=== PATIENT | female | born 1960 | race African-American/Black ===

== ENCOUNTER 2022-06-14 11:35 | Inpatient (IN) | payer BC, OTHER ==
[2022-06-14] MEDS ORDERED: ALBUTEROL SO4 2.5/IPRATROPIUM 0.5 INH SOL 3 ML VIAL.NEB. NEB ONE (12:30)
[2022-06-14] MEDS: ALBUTEROL SO4 2.5/IPRATROPIUM 0.5 INH SOL 3 ML VIAL.NEB. NEB SCH ×3 (12:33→13:01)
[2022-06-14] MEDS ORDERED: DEXAMETHASONE 4 MG TABLET (FP) PO ONE (12:40)
[2022-06-14] MEDS ORDERED: DEXAMETHASONE SOD PHOSPHATE 10 MG/1 ML VIAL ONE (12:47)
[2022-06-14] MEDS ORDERED: DEXAMETHASONE 4 MG TABLET (FP) ONE (12:48)
[2022-06-14] MEDS ORDERED: ALBUTEROL SO4 0.083% IH SOL 2.5 MG/3 ML VIAL.NEB. NEB ONE ×2 (13:50→18:23)
[2022-06-14] MEDS ORDERED: MAGNESIUM 1GM/D5W - 1 GM/100 ML IVPB IVPB ONE (13:50)
[2022-06-14] MEDS: ALBUTEROL SO4 0.083% IH SOL 2.5 MG/3 ML VIAL.NEB. NEB SCH ×8 (13:56→18:00)
[2022-06-14 14:38] LABS: VENOUS BASE EXCESS 3.8 mmol/L (-2-2); VENOUS O2 SATURATION 38.9 % (70-80); VENOUS PCO2 48.3 mmHg (38-52); VENOUS PH 7.403 (7.310-7.410)
[2022-06-14 15:02] LABS: BASO % 0.6 % (0-2.0); EOS % 1.5 % (0-4.5); HEMATOCRIT 38.1 % (32.4-45.2); HEMOGLOBIN 12.6 GM/dL (10.7-15.3); LYMPH % 20.2 % (8-40); MCH 28.3 pg (25.7-33.7); MCHC 33.1 g/dl (32.0-36.0); MEAN CELL VOLUME 85.3 fl (80-96); MONO % 9.7 % (3.8-10.2); PLATELET COUNT 195 10^3/uL (134-434); RBC 4.46 M/mm3 (3.60-5.2); RDW 14.5 % (11.6-15.6); WHITE BLOOD COUNT 5.8 K/mm3 (4.0-10.0)
[2022-06-14] MEDS ORDERED: OSELTAMIVIR PHOSPHATE 75 MG CAPSULE PO ONE (15:19)
[2022-06-14 15:20] LABS: BLOOD UREA NITROGEN 9.2 mg/dL (7-18)
[2022-06-14 15:21] LABS: ALBUMIN 3.4 g/dl (3.4-5.0); MAGNESIUM 1.8 mg/dL (1.8-2.4)
[2022-06-14 15:24] LABS: CREATININE 0.9 mg/dL (0.55-1.3)
[2022-06-14 15:26] LABS: BILIRUBIN,TOTAL 0.6 mg/dL (0.2-1); TOT PROT 7.5 g/dl (6.4-8.2)
[2022-06-14] MEDS ORDERED: ALBUTEROL SO4 0.083% IH SOL 2.5 MG/3 ML VIAL.NEB. NEB PRN (17:27)
[2022-06-14] MEDS ORDERED: methylPREDNISolone NA SUCC 40 MG/1 ML VIAL IVPB SCH (17:30)
[2022-06-14 18:18] LABS: N-TERMINAL BNP 1755.2 pg/ml (5-125)
[2022-06-14] MEDS ORDERED: methylPREDNISolone NA SUCC 40 MG/1 ML VIAL ONE (18:23)
[2022-06-14] MEDS: methylPREDNISolone NA SUCC 40 MG/1 ML VIAL IVPB SCH (18:33)
[2022-06-14] MEDS: SODIUM CHLORIDE 1,000 ML IV SCH (18:33)
[2022-06-14] MEDS ORDERED: INSULIN (NOVOLOG) ASPART 100 UNITS/ML 10ML VIAL SQ ONE (19:08)
[2022-06-14] MEDS ORDERED: INSULIN (LEVEMIR) 100 UNITS/ML UNITS SQ SCH (22:00)
[2022-06-14] MEDS: INSULIN (LEVEMIR) 100 UNITS/ML UNITS SQ SCH (23:43)
[2022-06-15] MEDS: INSULIN SLIDING SCALE (NOVOLOG) 1 VIAL SQ SCH ×4 (00:37→16:37)
[2022-06-15 00:53] VITALS: BMI 31.1
[2022-06-15] MEDS: methylPREDNISolone NA SUCC 40 MG/1 ML VIAL IVPB SCH ×3 (01:43→16:32)
[2022-06-15] MEDS: SODIUM CHLORIDE 1,000 ML IV SCH (01:43)
[2022-06-15] MEDS: OSELTAMIVIR PHOSPHATE 75 MG CAPSULE PO SCH ×2 (09:20→22:31)
[2022-06-15] MEDS: LABETALOL HCL 100 MG TABLET (FP) PO SCH ×2 (09:20→22:31)
[2022-06-15] MEDS: glipiZIDE 5 MG TABLET (FP) PO SCH ×2 (09:20→16:32)
[2022-06-15] MEDS: VALSARTAN 160 MG TABLET PO SCH (09:20)
[2022-06-15] MEDS: ENOXAPARIN NA (PORCINE) 40 MG/0.4 ML DISP.SYRIN SQ SCH (09:20)
[2022-06-15] MEDS: guaiFENesin 200 MG/10 ML 10 ML UNIT-DOSE CUPS PO PRN ×2 (09:26→22:31)
[2022-06-15 09:27] LABS: BASO % 0.2 % (0-2.0); HEMATOCRIT 37.2 % (32.4-45.2); LYMPH % 10.5 % (8-40); MCH 27.8 pg (25.7-33.7); MCHC 32.4 g/dl (32.0-36.0); MEAN CELL VOLUME 85.9 fl (80-96); MEAN PLT VOLUME 10.2 fl (7.5-11.1); MONO % 2.4 % (3.8-10.2); NEUT % 86.9 % (42.8-82.8); PLATELET COUNT 220 10^3/uL (134-434); RBC 4.32 M/mm3 (3.60-5.2); RDW 14.8 % (11.6-15.6); WHITE BLOOD COUNT 5.5 K/mm3 (4.0-10.0)
[2022-06-15] MEDS: ALBUTEROL SO4 2.5/IPRATROPIUM 0.5 INH SOL 3 ML VIAL.NEB. NEB PRN ×2 (09:43→16:46)
[2022-06-15 09:53] LABS: ALBUMIN 3.3 g/dl (3.4-5.0); BLOOD UREA NITROGEN 22.3 mg/dL (7-18)
[2022-06-15 09:55] LABS: CREATININE 1.3 mg/dL (0.55-1.3)
[2022-06-15 09:57] LABS: BILIRUBIN,TOTAL 0.5 mg/dL (0.2-1); TOT PROT 7.4 g/dl (6.4-8.2)
[2022-06-15] MEDS: hydrALAZINE HCL 50 MG TABLET (FP) PO SCH ×2 (13:57→22:30)
[2022-06-15] MEDS ORDERED: ALBUTEROL SO4 HFA INHALER IH PRN (14:10)
[2022-06-15] MEDS ORDERED: amLODIPine BESYLATE 5 MG TABLET (FP) PO ONE (14:11)
[2022-06-15] MEDS: INSULIN (LEVEMIR) 100 UNITS/ML UNITS SQ SCH (22:30)
[2022-06-16] MEDS: methylPREDNISolone NA SUCC 40 MG/1 ML VIAL IVPB SCH ×5 (00:45→23:06)
[2022-06-16] MEDS: hydrALAZINE HCL 50 MG TABLET (FP) PO SCH ×3 (05:30→21:38)
[2022-06-16] MEDS: INSULIN SLIDING SCALE (NOVOLOG) 1 VIAL SQ SCH (06:04)
[2022-06-16] MEDS: glipiZIDE 5 MG TABLET (FP) PO SCH (06:25)
[2022-06-16] MEDS: VALSARTAN 160 MG TABLET PO SCH (09:43)
[2022-06-16] MEDS: ENOXAPARIN NA (PORCINE) 40 MG/0.4 ML DISP.SYRIN SQ SCH (09:43)
[2022-06-16] MEDS: OSELTAMIVIR PHOSPHATE 75 MG CAPSULE PO SCH ×2 (09:43→21:37)
[2022-06-16] MEDS: LABETALOL HCL 100 MG TABLET (FP) PO SCH ×2 (09:43→21:37)
[2022-06-16] MEDS: guaiFENesin 200 MG/10 ML 10 ML UNIT-DOSE CUPS PO PRN ×2 (09:44→14:45)
[2022-06-16] MEDS ORDERED: ALBUTEROL SO4 HFA INHALER IH PRN (10:10)
[2022-06-16] MEDS ORDERED: ALBUTEROL SO4 2.5/IPRATROPIUM 0.5 INH SOL 3 ML VIAL.NEB. NEB PRN (10:10)
[2022-06-16] MEDS: ALBUTEROL SO4 2.5/IPRATROPIUM 0.5 INH SOL 3 ML VIAL.NEB. NEB SCH ×3 (11:28→21:36)
[2022-06-16] MEDS: INSULIN (NOVOLOG) ASPART 100 UNITS/ML 10ML VIAL SQ SCH ×2 (11:42→16:55)
[2022-06-16] MEDS ORDERED: methylPREDNISolone NA SUCC 40 MG/1 ML VIAL IVPB SCH (16:23)
[2022-06-16] MEDS: glipiZIDE 10 MG TABLET (FP) PO SCH (16:54)
[2022-06-16] MEDS: INSULIN (LEVEMIR) 100 UNITS/ML UNITS SQ SCH (21:40)
[2022-06-16] MEDS: CLOTRIMAZOLE 1% VAGINAL CREAM WITH APPLICATOR 45 GM TUBE VG SCH (21:41)
[2022-06-17] MEDS: ALBUTEROL SO4 2.5/IPRATROPIUM 0.5 INH SOL 3 ML VIAL.NEB. NEB SCH ×6 (02:26→20:05)
[2022-06-17] MEDS: methylPREDNISolone NA SUCC 40 MG/1 ML VIAL IVPB SCH ×4 (06:11→22:19)
[2022-06-17] MEDS: hydrALAZINE HCL 50 MG TABLET (FP) PO SCH ×3 (06:11→22:18)
[2022-06-17] MEDS: glipiZIDE 10 MG TABLET (FP) PO SCH ×2 (06:12→16:51)
[2022-06-17] MEDS: INSULIN (NOVOLOG) ASPART 100 UNITS/ML 10ML VIAL SQ SCH ×3 (06:15→16:51)
[2022-06-17] MEDS: ENOXAPARIN NA (PORCINE) 40 MG/0.4 ML DISP.SYRIN SQ SCH (10:27)
[2022-06-17] MEDS: LABETALOL HCL 100 MG TABLET (FP) PO SCH ×2 (10:27→22:18)
[2022-06-17] MEDS: OSELTAMIVIR PHOSPHATE 75 MG CAPSULE PO SCH ×2 (10:27→22:18)
[2022-06-17] MEDS: VALSARTAN 160 MG TABLET PO SCH (10:28)
[2022-06-17] MEDS: guaiFENesin 200 MG/10 ML 10 ML UNIT-DOSE CUPS PO PRN (10:29)
[2022-06-17] MEDS: CLOTRIMAZOLE 1% VAGINAL CREAM WITH APPLICATOR 45 GM TUBE VG SCH (22:19)
[2022-06-17] MEDS: INSULIN (LEVEMIR) 100 UNITS/ML UNITS SQ SCH (22:21)
[2022-06-18] MEDS: ALBUTEROL SO4 2.5/IPRATROPIUM 0.5 INH SOL 3 ML VIAL.NEB. NEB SCH ×6 (01:31→20:08)
[2022-06-18] MEDS: methylPREDNISolone NA SUCC 40 MG/1 ML VIAL IVPB SCH ×3 (06:11→21:59)
[2022-06-18] MEDS: hydrALAZINE HCL 50 MG TABLET (FP) PO SCH ×3 (06:11→21:59)
[2022-06-18] MEDS: glipiZIDE 10 MG TABLET (FP) PO SCH ×2 (06:11→17:20)
[2022-06-18] MEDS: INSULIN (NOVOLOG) ASPART 100 UNITS/ML 10ML VIAL SQ SCH ×3 (06:14→17:25)
[2022-06-18] MEDS: VALSARTAN 160 MG TABLET PO SCH (09:43)
[2022-06-18] MEDS: ENOXAPARIN NA (PORCINE) 40 MG/0.4 ML DISP.SYRIN SQ SCH (09:43)
[2022-06-18] MEDS: LABETALOL HCL 200 MG TABLET (FP) PO SCH ×2 (09:43→21:59)
[2022-06-18] MEDS: OSELTAMIVIR PHOSPHATE 75 MG CAPSULE PO SCH (09:43)
[2022-06-18] MEDS: CHLORTHALIDONE 25 MG TABLET PO SCH (09:43)
[2022-06-18] MEDS: NYSTATIN 500,000 UNITS/5 ML SUSPENSION PO SCH ×2 (13:18→17:20)
[2022-06-18] MEDS: INSULIN (LEVEMIR) 100 UNITS/ML UNITS SQ SCH (21:59)
[2022-06-18] MEDS: CLOTRIMAZOLE 1% VAGINAL CREAM WITH APPLICATOR 45 GM TUBE VG SCH (21:59)
[2022-06-18] MEDS ORDERED: SODIUM CHLORIDE 250 ML IV STA (23:34)
[2022-06-19] MEDS: ALBUTEROL SO4 2.5/IPRATROPIUM 0.5 INH SOL 3 ML VIAL.NEB. NEB SCH ×6 (00:36→20:05)
[2022-06-19] MEDS: NYSTATIN 500,000 UNITS/5 ML SUSPENSION PO SCH ×4 (01:14→17:15)
[2022-06-19] MEDS ORDERED: ACETAMINOPHEN 325 MG TABLET (FP) PO ONE (05:02)
[2022-06-19] MEDS: INSULIN (NOVOLOG) ASPART 100 UNITS/ML 10ML VIAL SQ SCH ×3 (06:19→16:45)
[2022-06-19] MEDS: glipiZIDE 10 MG TABLET (FP) PO SCH ×2 (06:20→16:42)
[2022-06-19] MEDS: hydrALAZINE HCL 50 MG TABLET (FP) PO SCH ×3 (06:21→21:15)
[2022-06-19] MEDS: VALSARTAN 160 MG TABLET PO SCH (09:27)
[2022-06-19] MEDS: ENOXAPARIN NA (PORCINE) 40 MG/0.4 ML DISP.SYRIN SQ SCH (09:28)
[2022-06-19] MEDS: CHLORTHALIDONE 25 MG TABLET PO SCH (09:28)
[2022-06-19] MEDS: LABETALOL HCL 200 MG TABLET (FP) PO SCH ×2 (09:28→21:15)
[2022-06-19] MEDS: methylPREDNISolone NA SUCC 40 MG/1 ML VIAL IVPB SCH ×2 (09:42→21:15)
[2022-06-19 11:33] LABS: HEMOGLOBIN 13.3 GM/dL (10.7-15.3); MCH 28.2 pg (25.7-33.7); MCHC 33.3 g/dl (32.0-36.0); MEAN CELL VOLUME 84.7 fl (80-96); MEAN PLT VOLUME 10.1 fl (7.5-11.1); PLATELET COUNT 187 10^3/uL (134-434); RBC 4.73 M/mm3 (3.60-5.2); RDW 14.7 % (11.6-15.6); WHITE BLOOD COUNT 8.8 K/mm3 (4.0-10.0)
[2022-06-19 11:57] LABS: CALCIUM 8.8 mg/dL (8.5-10.1)
[2022-06-19 11:58] LABS: ALBUMIN 2.8 g/dl (3.4-5.0); BLOOD UREA NITROGEN 24.5 mg/dL (7-18)
[2022-06-19 12:03] LABS: BILIRUBIN,TOTAL 0.9 mg/dL (0.2-1); TOT PROT 6.8 g/dl (6.4-8.2)
[2022-06-19 13:28] LABS: EPI CELLS 10 /uL (0-25.1); HYALINE CASTS 0 /uL (0-3.1); URINE APPEARANCE CLEAR; URINE BACTERIA 321 /uL (0-1359); URINE BILIRUBIN NEGATIVE (NEGATIVE); URINE COLOR YELLOW; URINE GLUCOSE (UA) TRACE (NEGATIVE); URINE KETONE NEGATIVE (NEGATIVE); URINE LEUK ESTERASE NEGATIVE (NEGATIVE); URINE NITRITE NEGATIVE (NEGATIVE); URINE PROTEIN 1+ (NEGATIVE); URINE RBC 6 /uL (0-23.9); URINE WBC 10 /uL (0-25.8)
[2022-06-19] MEDS: INSULIN (LEVEMIR) 100 UNITS/ML UNITS SQ SCH (21:15)
[2022-06-19] MEDS: CLOTRIMAZOLE 1% VAGINAL CREAM WITH APPLICATOR 45 GM TUBE VG SCH (21:18)
[2022-06-20] MEDS: NYSTATIN 500,000 UNITS/5 ML SUSPENSION PO SCH ×4 (00:15→17:46)
[2022-06-20] MEDS: ALBUTEROL SO4 2.5/IPRATROPIUM 0.5 INH SOL 3 ML VIAL.NEB. NEB SCH ×6 (04:00→20:24)
[2022-06-20] MEDS: hydrALAZINE HCL 50 MG TABLET (FP) PO SCH ×3 (06:24→22:25)
[2022-06-20] MEDS: INSULIN (NOVOLOG) ASPART 100 UNITS/ML 10ML VIAL SQ SCH ×3 (06:24→17:46)
[2022-06-20] MEDS: glipiZIDE 10 MG TABLET (FP) PO SCH ×2 (06:25→17:46)
[2022-06-20] MEDS ORDERED: ACETAMINOPHEN 325 MG TABLET (FP) PO ONE (06:36)
[2022-06-20] MEDS ORDERED: guaiFENesin/D-M SUGAR-FREE/ACLHOL-FREE 5 ML UNIT DOSE PO PRN (08:19)
[2022-06-20] MEDS ORDERED: PIPERACILLIN/TAZOB 3.375 GM 3.375 GM in DEXTROSE 5%-WATER - 50 ML IVPB SCH (10:00)
[2022-06-20] MEDS: methylPREDNISolone NA SUCC 40 MG/1 ML VIAL IVPB SCH ×2 (10:43→22:25)
[2022-06-20] MEDS: ENOXAPARIN NA (PORCINE) 40 MG/0.4 ML DISP.SYRIN SQ SCH (10:44)
[2022-06-20] MEDS: VALSARTAN 160 MG TABLET PO SCH (10:44)
[2022-06-20] MEDS: CHLORTHALIDONE 25 MG TABLET PO SCH (10:45)
[2022-06-20] MEDS: LABETALOL HCL 200 MG TABLET (FP) PO SCH ×2 (10:45→22:25)
[2022-06-20] MEDS: VANCOMYCIN/WATER FOR INJ (PEG) 1,000 MG/200 ML BAG IVPB SCH (15:56)
[2022-06-20] MEDS: PIPERACILLIN/TAZOB 4.5 GM 4.5 GM in DEXTROSE 5%-WATER 100 ML IVPB SCH (17:46)
[2022-06-20] MEDS: INSULIN (LEVEMIR) 100 UNITS/ML UNITS SQ SCH (22:26)
[2022-06-20] MEDS: CLOTRIMAZOLE 1% VAGINAL CREAM WITH APPLICATOR 45 GM TUBE VG SCH (22:26)
[2022-06-21] MEDS: ALBUTEROL SO4 2.5/IPRATROPIUM 0.5 INH SOL 3 ML VIAL.NEB. NEB SCH ×3 (00:10→09:37)
[2022-06-21] MEDS: NYSTATIN 500,000 UNITS/5 ML SUSPENSION PO SCH ×5 (01:43→23:30)
[2022-06-21] MEDS: PIPERACILLIN/TAZOB 4.5 GM 4.5 GM in DEXTROSE 5%-WATER 100 ML IVPB SCH ×3 (01:44→17:01)
[2022-06-21] MEDS: VANCOMYCIN/WATER FOR INJ (PEG) 1,000 MG/200 ML BAG IVPB SCH ×2 (03:15→15:11)
[2022-06-21] MEDS: hydrALAZINE HCL 50 MG TABLET (FP) PO SCH ×4 (06:13→22:03)
[2022-06-21] MEDS: glipiZIDE 10 MG TABLET (FP) PO SCH ×2 (06:13→16:34)
[2022-06-21] MEDS: INSULIN (NOVOLOG) ASPART 100 UNITS/ML 10ML VIAL SQ SCH ×3 (06:22→16:29)
[2022-06-21] MEDS ORDERED: INSULIN (NOVOLOG) ASPART 100 UNITS/ML 10ML VIAL ONE (06:27)
[2022-06-21] MEDS ORDERED: INSULIN (LEVEMIR) 100 UNITS/ML UNITS SQ SCH (07:47)
[2022-06-21] MEDS: methylPREDNISolone NA SUCC 40 MG/1 ML VIAL IVPB SCH ×2 (10:18→21:58)
[2022-06-21] MEDS: ENOXAPARIN NA (PORCINE) 40 MG/0.4 ML DISP.SYRIN SQ SCH (10:18)
[2022-06-21] MEDS: VALSARTAN 160 MG TABLET PO SCH (10:19)
[2022-06-21] MEDS: CHLORTHALIDONE 25 MG TABLET PO SCH (10:19)
[2022-06-21] MEDS: LABETALOL HCL 200 MG TABLET (FP) PO SCH ×2 (10:19→22:03)
[2022-06-21 10:35] LABS: BASO % 0.1 % (0-2.0); HEMATOCRIT 38.8 % (32.4-45.2); HEMOGLOBIN 12.9 GM/dL (10.7-15.3); LYMPH % 24.8 % (8-40); MCH 27.9 pg (25.7-33.7); MCHC 33.3 g/dl (32.0-36.0); MEAN CELL VOLUME 83.7 fl (80-96); MEAN PLT VOLUME 10.3 fl (7.5-11.1); MONO % 6.6 % (3.8-10.2); NEUT % 68.5 % (42.8-82.8); PLATELET COUNT 177 10^3/uL (134-434); RBC 4.64 M/mm3 (3.60-5.2); RDW 14.5 % (11.6-15.6); WHITE BLOOD COUNT 6.5 K/mm3 (4.0-10.0)
[2022-06-21 11:14] LABS: BLOOD UREA NITROGEN 32.4 mg/dL (7-18); CALCIUM 8.6 mg/dL (8.5-10.1)
[2022-06-21 11:17] LABS: CREATININE 1.2 mg/dL (0.55-1.3)
[2022-06-21 11:19] LABS: BILIRUBIN,TOTAL 0.7 mg/dL (0.2-1); TOT PROT 6.2 g/dl (6.4-8.2)
[2022-06-21 11:27] LABS: ALBUMIN 2.2 g/dl (3.4-5.0)
[2022-06-21] MEDS: CLOTRIMAZOLE 1% VAGINAL CREAM WITH APPLICATOR 45 GM TUBE VG SCH (22:03)
[2022-06-21] MEDS ORDERED: INSULIN (NOVOLOG) ASPART 100 UNITS/ML 10ML VIAL SQ ONE (22:11)
[2022-06-22] MEDS: PIPERACILLIN/TAZOB 4.5 GM 4.5 GM in DEXTROSE 5%-WATER 100 ML IVPB SCH ×3 (02:51→17:22)
[2022-06-22] MEDS: VANCOMYCIN/WATER FOR INJ (PEG) 1,000 MG/200 ML BAG IVPB SCH (02:51)
[2022-06-22] MEDS: glipiZIDE 10 MG TABLET (FP) PO SCH ×2 (06:17→16:32)
[2022-06-22] MEDS: hydrALAZINE HCL 50 MG TABLET (FP) PO SCH ×3 (06:17→22:04)
[2022-06-22] MEDS: NYSTATIN 500,000 UNITS/5 ML SUSPENSION PO SCH ×4 (06:17→23:33)
[2022-06-22] MEDS: INSULIN (NOVOLOG) ASPART 100 UNITS/ML 10ML VIAL SQ SCH ×3 (06:32→17:47)
[2022-06-22] MEDS ORDERED: INSULIN (LEVEMIR) 100 UNITS/ML UNITS SQ SCH (07:45)
[2022-06-22] MEDS: CHLORTHALIDONE 25 MG TABLET PO SCH (09:53)
[2022-06-22] MEDS: VALSARTAN 160 MG TABLET PO SCH (09:53)
[2022-06-22] MEDS: ENOXAPARIN NA (PORCINE) 40 MG/0.4 ML DISP.SYRIN SQ SCH (09:53)
[2022-06-22] MEDS: methylPREDNISolone NA SUCC 40 MG/1 ML VIAL IVPB SCH (09:53)
[2022-06-22] MEDS: LABETALOL HCL 200 MG TABLET (FP) PO SCH ×2 (09:53→22:04)
[2022-06-22] MEDS ORDERED: INSULIN (NOVOLOG) ASPART 100 UNITS/ML 10ML VIAL SQ ONE ×3 (11:30→20:30)
[2022-06-22] MEDS ORDERED: INSULIN (NOVOLOG) ASPART 100 UNITS/ML 10ML VIAL ONE (16:50)
[2022-06-22] MEDS: INSULIN (LEVEMIR) 100 UNITS/ML UNITS SQ SCH (22:03)
[2022-06-22] MEDS: CLOTRIMAZOLE 1% VAGINAL CREAM WITH APPLICATOR 45 GM TUBE VG SCH (22:05)
[2022-06-22] MEDS ORDERED: Insulin (LOG) Aspart 100 UNITS/ML VIAL SQ ONE (23:45)
[2022-06-23] MEDS: PIPERACILLIN/TAZOB 4.5 GM 4.5 GM in DEXTROSE 5%-WATER 100 ML IVPB SCH ×3 (01:46→17:25)
[2022-06-23] MEDS: hydrALAZINE HCL 50 MG TABLET (FP) PO SCH ×3 (06:21→21:22)
[2022-06-23] MEDS: NYSTATIN 500,000 UNITS/5 ML SUSPENSION PO SCH ×3 (06:21→17:25)
[2022-06-23] MEDS: glipiZIDE 10 MG TABLET (FP) PO SCH ×2 (06:21→17:25)
[2022-06-23] MEDS: INSULIN SLIDING SCALE (NOVOLOG) 1 VIAL SQ SCH ×3 (06:23→17:24)
[2022-06-23] MEDS: INSULIN (LEVEMIR) 100 UNITS/ML UNITS SQ SCH ×2 (06:25→21:28)
[2022-06-23] MEDS: LABETALOL HCL 200 MG TABLET (FP) PO SCH ×2 (09:40→21:22)
[2022-06-23] MEDS: VALSARTAN 160 MG TABLET PO SCH (09:40)
[2022-06-23] MEDS: ENOXAPARIN NA (PORCINE) 40 MG/0.4 ML DISP.SYRIN SQ SCH (09:41)
[2022-06-23] MEDS: CHLORTHALIDONE 25 MG TABLET PO SCH (09:41)
[2022-06-23] MEDS ORDERED: methylPREDNISolone NA SUCC 40 MG/1 ML VIAL IVPB SCH (10:00)
[2022-06-23 11:36] LABS: HEMATOCRIT 38.9 % (32.4-45.2); HEMOGLOBIN 13.2 GM/dL (10.7-15.3); MCH 28.4 pg (25.7-33.7); MCHC 33.8 g/dl (32.0-36.0); MEAN CELL VOLUME 84.1 fl (80-96); MEAN PLT VOLUME 9.8 fl (7.5-11.1); PLATELET COUNT 226 10^3/uL (134-434); RBC 4.63 M/mm3 (3.60-5.2); RDW 14.2 % (11.6-15.6); WHITE BLOOD COUNT 7.6 K/mm3 (4.0-10.0)
[2022-06-23 11:57] LABS: BLOOD UREA NITROGEN 34.3 mg/dL (7-18); CALCIUM 9.1 mg/dL (8.5-10.1)
[2022-06-23 11:58] LABS: ALBUMIN 2.2 g/dl (3.4-5.0); CREATININE 0.9 mg/dL (0.55-1.3)
[2022-06-23 12:01] LABS: BILIRUBIN,TOTAL 0.6 mg/dL (0.2-1); TOT PROT 6.3 g/dl (6.4-8.2)
[2022-06-23] MEDS ORDERED: INSULIN (NOVOLOG) ASPART 100 UNITS/ML 10ML VIAL ONE (12:08)
[2022-06-23] MEDS: POTASSIUM CHLORIDE TABS 20 MEQ TABLET.ER (FP) PO SCH (15:21)
[2022-06-23] MEDS ORDERED: Insulin (LOG) Aspart 100 UNITS/ML VIAL SQ ONE ×2 (20:21→21:00)
[2022-06-23] MEDS: CLOTRIMAZOLE 1% VAGINAL CREAM WITH APPLICATOR 45 GM TUBE VG SCH (21:28)
[2022-06-24] MEDS: NYSTATIN 500,000 UNITS/5 ML SUSPENSION PO SCH ×4 (01:51→17:41)
[2022-06-24] MEDS: PIPERACILLIN/TAZOB 4.5 GM 4.5 GM in DEXTROSE 5%-WATER 100 ML IVPB SCH ×3 (02:15→17:41)
[2022-06-24] MEDS: INSULIN (LEVEMIR) 100 UNITS/ML UNITS SQ SCH ×2 (06:07→21:23)
[2022-06-24] MEDS: glipiZIDE 10 MG TABLET (FP) PO SCH ×2 (06:07→17:40)
[2022-06-24] MEDS: hydrALAZINE HCL 50 MG TABLET (FP) PO SCH ×3 (06:07→21:21)
[2022-06-24] MEDS: INSULIN SLIDING SCALE (NOVOLOG) 1 VIAL SQ SCH ×4 (06:08→21:21)
[2022-06-24] MEDS: LABETALOL HCL 200 MG TABLET (FP) PO SCH ×2 (09:48→21:21)
[2022-06-24] MEDS: CHLORTHALIDONE 25 MG TABLET PO SCH (09:48)
[2022-06-24] MEDS: predniSONE 20 MG TABLET (UD) PO SCH (09:48)
[2022-06-24] MEDS: ENOXAPARIN NA (PORCINE) 40 MG/0.4 ML DISP.SYRIN SQ SCH (09:48)
[2022-06-24] MEDS: POTASSIUM CHLORIDE TABS 20 MEQ TABLET.ER (FP) PO SCH (09:48)
[2022-06-24] MEDS: VALSARTAN 160 MG TABLET PO SCH (09:48)
[2022-06-24] MEDS: CLOTRIMAZOLE 1% VAGINAL CREAM WITH APPLICATOR 45 GM TUBE VG SCH (21:24)
[2022-06-24 21:51] VITALS: RESP 20
[2022-06-25] MEDS: NYSTATIN 500,000 UNITS/5 ML SUSPENSION PO SCH ×2 (00:09→06:15)
[2022-06-25] MEDS: PIPERACILLIN/TAZOB 4.5 GM 4.5 GM in DEXTROSE 5%-WATER 100 ML IVPB SCH ×2 (01:59→09:44)
[2022-06-25] MEDS: glipiZIDE 10 MG TABLET (FP) PO SCH (06:15)
[2022-06-25] MEDS: hydrALAZINE HCL 50 MG TABLET (FP) PO SCH (06:15)
[2022-06-25] MEDS: INSULIN (LEVEMIR) 100 UNITS/ML UNITS SQ SCH (06:18)
[2022-06-25] MEDS: INSULIN SLIDING SCALE (NOVOLOG) 1 VIAL SQ SCH (06:19)
[2022-06-25 09:36] LABS: HEMATOCRIT 40.5 % (32.4-45.2); HEMOGLOBIN 13.4 GM/dL (10.7-15.3); MCH 27.8 pg (25.7-33.7); MEAN CELL VOLUME 84.2 fl (80-96); MEAN PLT VOLUME 9.1 fl (7.5-11.1); PLATELET COUNT 284 10^3/uL (134-434); RBC 4.81 M/mm3 (3.60-5.2); RDW 14.1 % (11.6-15.6); WHITE BLOOD COUNT 5.3 K/mm3 (4.0-10.0)
[2022-06-25] MEDS: VALSARTAN 160 MG TABLET PO SCH (09:43)
[2022-06-25] MEDS: predniSONE 20 MG TABLET (UD) PO SCH (09:43)
[2022-06-25] MEDS: LABETALOL HCL 200 MG TABLET (FP) PO SCH (09:43)
[2022-06-25] MEDS: CHLORTHALIDONE 25 MG TABLET PO SCH (09:43)
[2022-06-25] MEDS: POTASSIUM CHLORIDE TABS 20 MEQ TABLET.ER (FP) PO SCH (09:43)
[2022-06-25] MEDS: ENOXAPARIN NA (PORCINE) 40 MG/0.4 ML DISP.SYRIN SQ SCH (09:44)
[2022-06-25 10:17] LABS: ALBUMIN 2.3 g/dl (3.4-5.0); CALCIUM 9.6 mg/dL (8.5-10.1)
[2022-06-25 10:18] LABS: BLOOD UREA NITROGEN 25.7 mg/dL (7-18)
[2022-06-25 10:22] LABS: BILIRUBIN,TOTAL 0.7 mg/dL (0.2-1); TOT PROT 6.3 g/dl (6.4-8.2)
[2022-06-25 11:36] VITALS: BP 120/50; PULSE 77; TEMP 97.8
== END 2022-06-25 12:51 | disposition home or self-care (01) | DRG 194 ==
LOC: JER 11:35 → JERBED 18:43 → J4S 06-15 00:17 → J8W 06-15 17:08 → OBSVTOIN 06-18 07:52
PROVIDERS: ADMIT Internal Medicine; ATTEND Internal Medicine
DX: J10.1 Influenza due to other identified influenza virus with other respiratory manifestations (principal); J45.901 Unspecified asthma with (acute) exacerbation; J18.9 Pneumonia, unspecified organism; R00.0 Tachycardia, unspecified; R50.9 Fever, unspecified; I10 Essential (primary) hypertension; E11.65 Type 2 diabetes mellitus with hyperglycemia; I44.7 Left bundle-branch block, unspecified; Z85.3 Personal history of malignant neoplasm of breast; R42 Dizziness and giddiness
CPT/HCPCS: 0241U-QW; 36415; 71045-TC-FY; 71250-TC; 80053; 81003; 82803; 82962; 83036; 83735; 83880; 84484; 85025; 85027; 86140; 87040; 87070; 87081; 87086; 87205; 87899; 93005; 93010; 94010; 94640; 99285-25; C9803-CS; G0378; U0003; U0005

== ENCOUNTER 2023-07-09 12:08 | Emergency (ER) | payer BC ==
[2023-07-09] MEDS ORDERED: SODIUM CHLORIDE 0.9% 500 ML INFUS.BAG IV ONE (12:35)
[2023-07-09 13:12] VITALS: TEMP 98; BMI 29.3
[2023-07-09 15:22] LABS: BASO % 0.8 % (0-2.0); EOS % 1.6 % (0-4.5); HEMATOCRIT 41.1 % (32.4-45.2); HEMOGLOBIN 13.7 GM/dL (10.7-15.3); LYMPH % 35.5 % (8-40); MCH 27.2 pg (25.7-33.7); MCHC 33.4 g/dl (32.0-36.0); MEAN CELL VOLUME 81.4 fl (80-96); MEAN PLT VOLUME 10.2 fl (7.5-11.1); NEUT % 54.1 % (42.8-82.8); PLATELET COUNT 250 10^3/uL (134-434); RBC 5.04 M/mm3 (3.60-5.2); RDW 14.9 % (11.6-15.6); WHITE BLOOD COUNT 7.1 K/mm3 (4.0-10.0)
[2023-07-09 15:46] LABS: POTASSIUM 3.7 mmol/L (3.5-5.1)
[2023-07-09 15:50] LABS: ALBUMIN 3.9 g/dl (3.4-5.0); BLOOD UREA NITROGEN 18.4 mg/dL (7-18); CALCIUM 9.8 mg/dL (8.5-10.1)
[2023-07-09 15:53] LABS: CREATININE 1.2 mg/dL (0.55-1.3)
[2023-07-09 15:55] LABS: BILIRUBIN,TOTAL 1.3 mg/dL (0.2-1); TOT PROT 8.7 g/dl (6.4-8.2)
[2023-07-09 16:42] VITALS: BP 138/64; PULSE 69; RESP 18
== END 2023-07-09 16:40 | disposition home or self-care (01) ==
LOC: JER 12:08
DX: R42 Dizziness and giddiness (principal); R55 Syncope and collapse; R63.0 Anorexia; G47.9 Sleep disorder, unspecified
CPT/HCPCS: 36415; 70450-TC; 71045-TC-FY; 80053; 84484; 85025; 93005; 93010; 99285-25